=== PATIENT | female | born 1960 | race Caucasian/White ===

== ENCOUNTER 2021-06-22 09:52 | Outpatient (CLI) | payer BC, SELFPAY ==
--- NOTE | ~2021-06-22 | MM_ITS ---
EXAMINATION: MM screening [facility] BI w justen HISTORY: Screening TECHNIQUE: Craniocaudal and mediolateral oblique 3-D tomosynthesis images were obtained and synthetic 2-D images were generated. CAD analysis was submitted and interpreted. COMPARISON: Comparison to multiple prior studies sequentially, with oldest reviewed study dated 10/31. BREAST PARENCHYMAL COMPOSITION: There are scattered areas of fibroglandular density. FINDINGS: There is no evidence of suspicious mass, calcification, or architectural distortion to sugg est malignancy in either breast. There has been no suspicious interval change. IMPRESSION: 1. No mammographic evidence of malignancy. 2. Recommend routine screening mammography in one year. BI-RADS Category 1: Negative Reviewed, dictated and finalized at location A.
--- NOTE | ~2021-06-22 | DEXA_ITS ---
Bone Density Report Name: Hannah Herrera Age: 61 Sex: Female Ethnicity: White Date of : 1960 Indication: postmenopausal; height loss; hysterectomy; Referring Provider: Ion Bailey Study: Bone densitometry was performed. Exam Date: June 22, 2021 Accession number: [id number] Bone Density: Region BMD T-score Z-score Classification AP Spine (L1-L4) 1.082 0.3 1.9 Normal Femoral Neck (Left) 0.857 0.1 1.5 Normal Total Hip (Left) 1.063 1.0 2.1 Normal Total Hip Bilateral Avg 1.044 0.8 1.9 Normal Femoral Neck (Right) 0.838 -0.1 1.3 Normal Total Hip (Right) 1.023 0.7 1.7 Normal World Health Organization criteria for BMD impression classify patients as: Normal (T-score at or above -1.0), Osteopenia (T-score between -1.0 and -2.5), or Osteoporosis (T-score at or below -2.5). 10-year Fracture Risk: FRAX not reported because: All T-scores for Spine Total, Hip Total, Femoral Neck at or above -1.0 Previous Exams: Region Exam Age BMD T-score BMD Change BMD Change Date g/cm2 vs Baseline vs Previous AP Spine(L1-L4) 06/22/2021 61 1.082 0.3 -0.121(-10.1%) 0.035(3.4%)# 04/23/2017 57 1.047 0.0 -0.157(-13.0%) -0.003(-0.3%)# 11/17/2014 54 1.050 0.0 -0.153(-12.7%) -0.153(-12.7%) 10/16/2012 52 1.203 1.4 Total Hip(Left) 06/22/2021 61 1.063 1.0 -0.084(-7.3%)# -0.061(-5.4%)# 04/23/2017 57 1.124 1.5 -0.024(-2.1%)# -0.032(-2.8%)# 11/17/2014 54 1.156 1.8 0.008(0.7%)# 0.008(0.7%)# 10/16/2012 52 1.148 1.7 Total Hip(Right) 06/22/2021 61 1.023 0.7 -0.096(-8.6%)# -0.053(-4.9%)# 04/23/2017 57 1.076 1.1 -0.044(-3.9%)# -0.012(-1.1%)# 11/17/2014 54 1.087 1.2 -0.032(-2.9%)# -0.032(-2.9%)# 10/16/2012 52 1.119 1.5 *Denotes significance at 95% confidence level, LSC for AP Spine = 0.022 g/cm2, LSC for Total Hip = 0.027 g/cm2 Clinical Information Provided by Patient: Has the following medical conditions: Hysterectomy Patient maximum height was 67 Menopause Age: 51 No regular weight bearing exercise Drinks caffeinated beverages Onset of menses at age 13 Number of children 1 Impression: The patient has normal bone mass. No significant bone loss was observed. Discussion: BONE DENSITY IS ABOVE THE MINIMUM DESIRABLE LEVEL AT ALL SKELETAL SITES TESTED. This patient?s bone mineral density is above the minimum desirable level (T-score -1.0 or better) at all sites measured. The patient should follo
== END 2021-06-22 09:53 | disposition home or self-care (01) ==
LOC: ANHIMG 09:54
PROVIDERS: PCP Family Medicine; Visit Provider Family Medicine
DX: Z12.31 Encounter for screening mammogram for malignant neoplasm of breast (principal); Z78.0 Asymptomatic menopausal state
CPT/HCPCS: 77063; 77067; 77080

== ENCOUNTER 2022-08-21 10:34 | Outpatient (CLI) | payer BC, SELFPAY ==
--- NOTE | ~2022-08-21 | MM_ITS ---
EXAMINATION: MM screening [facility] BI w justen HISTORY: Screening mammogram TECHNIQUE: Craniocaudal and mediolateral oblique 3-D tomosynthesis images were obtained and synthetic 2-D images were generated. CAD analysis was submitted and interpreted. COMPARISON: 06/22/2021, 10/26/2019, 03/26/2018 BREAST PARENCHYMAL COMPOSITION: There are scattered areas of fibroglandular density. FINDINGS: There is no suspicious mass, calcification, or architectural distortion to suggest malignan cy in either breast. There has been no suspicious interval change. IMPRESSION: 1. No mammographic evidence of malignancy. 2. Recommend routine screening mammography in one year. BI-RADS Category 1: Negative Reviewed, dictated and finalized at location A.
== END 2022-08-21 10:35 | disposition home or self-care (01) ==
PROVIDERS: PCP Family Medicine; Visit Provider Nurse Practitioner Obstetrics & Gynecology
DX: Z12.31 Encounter for screening mammogram for malignant neoplasm of breast (principal)
CPT/HCPCS: 77063; 77067

== ENCOUNTER → 2023-08-27 11:24 | Outpatient (CLI) | payer BC, SELFPAY ==
--- NOTE | ~2023-08-27 | XR_ITS ---
EXAMINATION: XR sinus min 3V INDICATION: Jaw pain TECHNIQUE: Five views of the paranasal sinuses are obtained. COMPARISON: None available FINDINGS: No definite sinus opacification is identified. The paranasal sinuses are well pneumatized. No facial fracture is seen. The soft tissues are unremarkable. IMPRESSION: 1. No definite evidence of sinus disease. If there is high clinical suspicion for sinus disease, furt her evaluation with sinus CT is recommended. Reviewed, dictated and finalized at location F. IMPRESSION: 1. No definite evidence of sinus disease. If there is high clinical suspicion f or sinus disease, further evaluation with sinus CT is recommended.
== END ==
PROVIDERS: Visit Provider Family Medicine
DX: R68.84 Jaw pain (principal)
CPT/HCPCS: 70220

== ENCOUNTER 2024-02-06 12:57 | Outpatient (CLI) | payer BC, SELFPAY ==
--- NOTE | ~2024-02-06 | XR_ITS ---
EXAMINATION: XR lumbar spine 2-3V DATE: 02/06/2024 13:22 INDICATION: Low back pain TECHNIQUE: Anteroposterior and lateral views of the lumbar spine, and cone-down lateral view of the l umbosacral junction were obtained. COMPARISON: None. FINDINGS: There are 6 mm of anterolisthesis of L4 on L5. The vertebral body heights are maintained. T here is moderate loss of intervertebral disc space height at L4-5 and L5-S1. There is moderate facet joint osteoarthritis at L4-5 and L5-S1. There is no fracture. IMPRESSION: 1. Moderate lower lumbar spondylosis without acute findings. Reviewed, dictated and finalized at location B. [employer]ER
--- NOTE | ~2024-02-06 | XR_ITS ---
EXAMINATION: XR hip BI 2V w AP pelvis DATE: 02/06/2024 13:29 INDICATION: Bilateral hip pain TECHNIQUE: AP view the pelvis and two views of each hip were obtained. COMPARISON: None. FINDINGS: Bone alignment is normal. There is no fracture. There is mild osteoarthritis of hips. Calci fied atherosclerosis is noted. IMPRESSION: 1. Mild osteoarthritis of the hips without acute abnormality. Reviewed, dictated and finalized at location B. NEER CONDUCTOR
== END 2024-02-06 12:58 ==
LOC: MICIMG 12:59
PROVIDERS: PCP Physician Assistant; Visit Provider Physician Assistant
DX: M16.0 Bilateral primary osteoarthritis of hip (principal); M43.06 Spondylolysis, lumbar region
CPT/HCPCS: 72100; 73521

== ENCOUNTER 2024-04-08 15:20 | Outpatient (CLI) | payer MEDICARE, SELFPAY ==
--- NOTE | ~2024-04-08 | MM_ITS ---
EXAMINATION: MM screening [facility] BI w justen HISTORY: Screening mammogram TECHNIQUE: Craniocaudal and mediolateral oblique 3-D tomosynthesis images were obtained and synthetic 2-D images were generated. CAD analysis was submitted and interpreted. COMPARISON: 08/21/2022, 06/22/2021 bilateral screening mammogram examinations BREAST PARENCHYMAL COMPOSITION: There are scattered areas of fibroglandular density. FINDINGS: There is no evidence of suspicious mass, calcification, or architectural distortion to sugg est malignancy in either breast. There has been no suspicious interval change. IMPRESSION: 1. No mammographic evidence of malignancy. 2. Recommend routine screening mammography in one year. BI-RADS Category 1: Negative Reviewed, dictated and finalized at location B.
== END 2024-04-08 15:21 | disposition home or self-care (01) ==
PROVIDERS: PCP Family Medicine; Visit Provider Family Medicine
DX: Z12.31 Encounter for screening mammogram for malignant neoplasm of breast (principal)
CPT/HCPCS: 77063; 77067

== ENCOUNTER 2025-03-08 09:00 | Outpatient (CLI) | payer MEDICARE, SELFPAY ==
--- NOTE | ~2025-03-08 | XR_ITS ---
Left Shoulder Technique: AP and scapular Y views were obtained. Clinical History: Pain Findings: No fracture or dislocation is seen. Osseous alignment is anatomic. The glenohumeral and acr omioclavicular joints demonstrate moderate to advanced degenerative change. Soft tissues are unremark able. Impression: Degenerative changes, as above. Reviewed, dictated and finalized at location . Impression: Degenerative changes, as above.
--- NOTE | ~2025-03-08 | XR_ITS ---
XR cervical spine min 6V Ordering provider: Bruce Kelly PA-C History: . M54.2 - Cervicalgia . Comparison: None. FINDINGS: VERTEBRAL BODIES: Normal height and alignment. No visible fracture or subluxation. The dens is intact . Degenerative changes of the spine. DISK SPACES: Narrowing of the disc C4-C5 and C5-C6. Facet joint disease at the level of C5-C6 and C6- C7. Narrowing of the foramina multilevel which may be partly positional. Multilevel uncovertebral belinda nt osteoarthritic changes. PARASPINOUS SOFT TISSUES: No prevertebral soft tissue swelling. IMPRESSION: No acute osseous abnormality cervical spine. Multilevel degenerative disc disease. Reviewed, dictated and finalized at location A.
== END 2025-03-08 09:01 | disposition home or self-care (01) ==
LOC: MICIMG 09:03
PROVIDERS: PCP Family Medicine; Visit Provider Physician Assistant
DX: M50.321 Other cervical disc degeneration at C4-C5 level (principal); M50.322 Other cervical disc degeneration at C5-C6 level; M19.012 Primary osteoarthritis, left shoulder
CPT/HCPCS: 72052; 73030